=== PATIENT | female | born 1990 | race Caucasian/White ===

== ENCOUNTER 2016-08-31 01:00 | Inpatient (IN) | payer OTHER ==
[~2016-08-31 01:00] MED LIST: BUTORPHANOL TARTRATE 1 MG/ML VIAL IVPUSH ONE; DEXTROSE 5%-LACTATED RINGERS 1,000 ML IV SCH; PROMETHAZINE HCL 25 MG/1 ML VIAL IVPUSH ONE
[2016-08-31] MEDS ORDERED: CLINDAMYCIN 900 MG PREMIX IVPB 50 ML IVPB ONE (01:30)
[2016-08-31 01:55] LABS: BASOPHIL 0.4 % (0-2.0); EOSINOPHIL 0.3 % (0-4.5); MCH 26.5 pg (25.7-33.7); MCHC 32.5 g/dl (32.0-36.0); MEAN CELL VOLUME 81.6 fl (80-96); MEAN PLT VOLUME 9.5 fl (7.5-11.1); PLATELET COUNT 275 K/MM3 (134-434); RDW 14.2 % (11.6-15.6); WHITE BLOOD COUNT 13.4 K/mm3 (4.0-10.0)
[2016-08-31 01:58] VITALS: BMI 44.0
[2016-08-31] MEDS ORDERED: BENZOCAINE 20% 57 GM BOTTLE TP PRN (03:00)
[2016-08-31] MEDS ORDERED: WITCH HAZEL 50% (TUCKS) 40 PAD/JAR PAD TP PRN (03:00)
[2016-08-31] MEDS ORDERED: D5W-LR W/ 20 UNITS OXYTOCIN 1,000 ML IV SCH (03:00)
[2016-08-31] MEDS ORDERED: METHYLERGONOVINE MALEATE 0.2 MG/1 ML AMP IM PRN (03:00)
[2016-08-31] MEDS ORDERED: BENZOCAINE 28 GM HEMORRHOIDAL OINTMENT TP PRN (03:00)
[2016-08-31] MEDS ORDERED: BISACODYL 10 MG SUPP.RECT RC PRN (03:00)
[2016-08-31 04:22] LABS: ACTIVATED PTT 29.3 SECONDS (26.9-34.4); INR 1.04 (0.82-1.09); PROTHROMBIN TIME (PATIENT) 11.4 SEC (9.98-11.88)
[2016-08-31 04:36] LABS: CALCIUM 8.8 mg/dL (8.5-10.1); COCKROFT - GAULT 240.8985; CREATININE 0.6 mg/dL (0.55-1.02)
[2016-08-31] MEDS ORDERED: CLINDAMYCIN 600MG PREMIX IVPB 50 ML IVPB SCH (06:30)
[2016-08-31] MEDS: ACETAMINOPHEN 325 MG TABLET (FP) PO PRN ×3 (07:00→22:20)
[2016-08-31] MEDS: oxyCODONE HCL 5 MG TABLET PO PRN ×3 (07:00→22:20)
[2016-08-31] MEDS ORDERED: LEVOTHYROXINE NA 100 MCG TABLET (FP) PO SCH (07:00)
--- NOTE | 2016-08-31 07:36 | HP ---
Past Medical History - Primary Care Physician PCP:: Servando Santos - Admission Chief Complaint: labor, 39.6 weeks History of Present Illness: 26 yo f 39,6 weeks, in labor, no rom, no bleeding, cx 4 cm 100 vx -2mi , fhr cat 1, contraction regular History Source: Patient Limitations to Obtaining History: No Limitations - Past Medical History Cardiovascular: Yes: Other. No: Mitral Stenosis (h/o preclempsia in past pregn) Pulmonary: Yes: Asthma ...: 4 ...Para: 2 ...Term: 2 ...: 0 ...Spon : 1 ...Induced : 0 ...Multiple Gestation: 0 ...LMP: 11/29/15 ... Weeks Gestation by Dates: 39.4 ...EDC by Dates: 09/04/16 ...EDC by Sono: 09/10/16 Endocrine: Yes: Hypothyroidism, Other (morbid obesity). No: Diabetes Mellitus - Past Surgical History Hx Myomectomy: No Hx Transabdominal Cerclage: No - Smoking History Smoking history: Never smoked Have you smoked in the past 12 months: No - Alcohol/Substance Use Hx Alcohol Use: No History of Substance Use: reports: None - Social History Usual Living Arrangement: Yes: With Spouse History of Recent Travel: No Home Medications - Allergies Allergies/Adverse Reactions: Allergies Allergy/AdvReac Type Severity Reaction Status Date / Time amoxicillin [Amoxicillin] Allergy Severe Hives Verified 07/13/15 10:02 aspirin Allergy Severe Hives Verified 07/13/15 10:02 [From Excedrin Back & Body] calcium carbonate Allergy Severe Hives Verified 07/13/15 10:02 [From Excedrin Back & Body] ibuprofen Allergy Severe Hives Verified 07/13/15 10:02 - Home Medications Home Medications: Ambulatory Orders Levothyroxine [Synthroid -] 100 mcg PO DAILY@0700 tablet 07/14/15 Vitamins (Sjr) - 1 tab PO DAILY #30 tablet 07/14/15 Review of Systems - Review of Systems Constitutional: reports: No Symptoms Eyes: reports: No Symptoms HENT: reports: No Symptoms Neck: reports: No Symptoms Cardiovascular: reports: No Symptoms Respiratory: reports: No Symptoms Gastrointestinal: reports: No Symptoms Genitourinary: reports: No Symptoms Breasts: reports: No Symptoms Reported Musculoskeletal: reports: No Symptoms Integumentary: reports: No Symptoms Neurological: reports: No Symptoms Endocrine: reports: No Symptoms Hematology/Lymphatic: reports: No Symptoms Psychiatric: reports: No Symptoms Physical Exam - Maternity Vital Signs: Vital Signs Temperature 99.2 F 08/31/16 04:51 Pulse Rate 76 08/31/16 04:51 Respiratory Rate 20 08/31/16 04:51 Blood Pressure 134/80 08/31/16 04:51 O2 Sat by Pulse Oximetry (%) Constitutional: Yes: Well Nourished, No Distress, Calm Eyes: Yes: WNL, Conjunctiva Clear, EOM Intact HENT: Yes: WNL, Atraumatic, Normocephalic Neck: Yes: WNL, Supple, Trachea Midline Cardiovascular: Yes: WNL, Regular Rate and Rhythm Breast(s): Yes: WNL - Abdominal Exam/OB Fundal Height: 40 Number of Fetuses: Single Presentation: Vertex Contractions: Yes Regularity: Regular Monitor Mode: External Heart Rate Location: [facility] Category: I Accelerations: Uniform Decelerations: None - Vaginal Exam/OB Vaginal Bleediing: No Speculum Exam: No Dilatation (cm): 4 cm Effacement (%): 100 Amniotic Membrane Status: Bulging Presentation: Vertex/Position Station: -2 - Physical Exam Musculoskeletal: Yes: WNL Extremities: Yes: WNL Edema: Yes Edema: LLE: Trace, RLE: Trace Deep Tendon Reflex Grade: Normal +2 Psychiatric: Yes: WNL - Labs Lab Results: CBC, BMP 08/31/16 01:30 08/31/16 01:30 Hemorrhage Risk Assessment - Risk Factors High Risk Factors: Yes: None Risk Score: 0 Risk Level: Low Risk Problem List - Problems (1) with 39 completed weeks gestation Code(s): Z3A.39 - 39 WEEKS GESTATION OF (2) First stage of labor established Code(s): [id number] - (3) Hypothyroidism affecting Code(s): O99.280 - ENDO, NUTRITIONAL AND METAB DISEASES COMP PREG, UNSP TRI E03.9 - HYPOTHYROIDISM, UNSPECIFIED Qualifiers: Trimester: third trimester Qualified Code(s): O99.283 - Endocrine, nutritional and metabolic diseases complicating , third trimester (4) Obesity affecting in third trimester Code(s): O99.213 - OBESITY COMPLICATING , THIRD TRIMESTER Assessment/Plan plan admit, for vaginal delivery, heart monitoring, pain management
[2016-08-31] MEDS: PRENATAL VITAMINS W/ FOLIC ACID TABLET (FP) PO SCH (10:24)
[2016-09-01] MEDS ORDERED: SENNOSIDES/DOCUSATE COMBO (SENNA PLUS) TABLET (UD) PO PRN (03:00)
[2016-09-01] MEDS: ACETAMINOPHEN 325 MG TABLET (FP) PO PRN ×5 (03:50→23:49)
[2016-09-01] MEDS: LEVOTHYROXINE NA 100 MCG TABLET (FP) PO SCH (06:05)
[2016-09-01] MEDS: oxyCODONE HCL 5 MG TABLET PO PRN ×4 (06:08→23:48)
--- NOTE | 2016-09-01 08:02 | PN ---
Post Progress Note - Subjective Subjective: no complains Post Day: 1 Type of Delivery: Vital Signs: Vital Signs Temperature 98.4 F 09/01/16 02:00 Pulse Rate 84 09/01/16 02:00 Respiratory Rate 18 09/01/16 02:00 Blood Pressure 121/75 09/01/16 02:00 O2 Sat by Pulse Oximetry (%) Breast Exam: Yes: Soft, Other (BF ). No: Engorged Uterus: Yes: Fundus Firm, Fundus below umbilicus, Non-tender Abdomen/GI: Yes: Tolerating PO Lochia: Yes: Rubra Lochia, amount: Moderate Extremities: Yes: Calves non-tender. No: Calf tenderness Perineum: Yes: Intact Activity: Ambulating - Labs Labs: CBC WBC 13.4 K/mm3 (4.0-10.0) H 08/31/16 01:30 RBC 4.75 M/mm3 (3.60-5.2) 08/31/16 01:30 Hgb 12.6 GM/dL (10.7-15.3) D 08/31/16 01:30 Hct 38.8 % (32.4-45.2) D 08/31/16 01:30 MCV 81.6 fl (80-96) 08/31/16 01:30 MCHC 32.5 g/dl (32.0-36.0) 08/31/16 01:30 RDW 14.2 % (11.6-15.6) D 08/31/16 01:30 Plt Count 275 K/MM3 (134-434) D 08/31/16 01:30 MPV 9.5 fl (7.5-11.1) 08/31/16 01:30 Neutrophils % 78.0 % (42.8-82.8) 08/31/16 01:30 Lymphocytes % 16.3 % (8-40) 08/31/16 01:30 Monocytes % 5.0 % (3.8-10.2) 08/31/16 01:30 Eosinophils % 0.3 % (0-4.5) D 08/31/16 01:30 Basophils % 0.4 % (0-2.0) 08/31/16 01:30 Assessment/Plan stable plan ct pp care
[2016-09-01] MEDS ORDERED: PNEUMOCOCCAL 23 VACCINE 0.5 ML VIAL IM ONE (10:00)
[2016-09-01] MEDS ORDERED: PNEUMOC 13-VAL CONJ-DIP CRM/PF 0.5 ML DISP.SYRIN IM ONE (10:00)
[2016-09-01] MEDS ORDERED: DIPHTH,PERTUSS(ACELL),TET 0.5 ML DISP.SYRIN IM ONE (10:00)
[2016-09-01] MEDS: PRENATAL VITAMINS W/ FOLIC ACID TABLET (FP) PO SCH (10:12)
[2016-09-02] MEDS: LEVOTHYROXINE NA 100 MCG TABLET (FP) PO SCH (06:01)
[2016-09-02 08:52] VITALS: BP 127/79; PULSE 89; TEMP 98.5
--- NOTE | 2016-09-02 09:30 | PN ---
Post Progress Note - Subjective Subjective: asymptomatic Post Day: 2 Type of Delivery: Vital Signs: Vital Signs Temperature 98.5 F 09/02/16 08:48 Pulse Rate 89 09/02/16 08:48 Respiratory Rate 20 09/02/16 08:48 Blood Pressure 127/79 09/02/16 08:48 O2 Sat by Pulse Oximetry (%) Breast Exam: Yes: Soft, Other (BF ). No: Engorged Uterus: Yes: Fundus Firm, Fundus below umbilicus, Non-tender Lochia: Yes: Rubra Lochia, amount: Moderate Extremities: Yes: Calves non-tender Perineum: Yes: Intact Activity: Ambulating - Labs Labs: CBC WBC 13.4 K/mm3 (4.0-10.0) H 08/31/16 01:30 RBC 4.75 M/mm3 (3.60-5.2) 08/31/16 01:30 Hgb 12.6 GM/dL (10.7-15.3) D 08/31/16 01:30 Hct 38.8 % (32.4-45.2) D 08/31/16 01:30 MCV 81.6 fl (80-96) 08/31/16 01:30 MCHC 32.5 g/dl (32.0-36.0) 08/31/16 01:30 RDW 14.2 % (11.6-15.6) D 08/31/16 01:30 Plt Count 275 K/MM3 (134-434) D 08/31/16 01:30 MPV 9.5 fl (7.5-11.1) 08/31/16 01:30 Neutrophils % 78.0 % (42.8-82.8) 08/31/16 01:30 Lymphocytes % 16.3 % (8-40) 08/31/16 01:30 Monocytes % 5.0 % (3.8-10.2) 08/31/16 01:30 Eosinophils % 0.3 % (0-4.5) D 08/31/16 01:30 Basophils % 0.4 % (0-2.0) 08/31/16 01:30 Assessment/Plan stable. discharge today.
[2016-09-02] MEDS: PRENATAL VITAMINS W/ FOLIC ACID TABLET (FP) PO SCH (09:40)
[2016-09-02] MEDS: oxyCODONE HCL 5 MG TABLET PO PRN (11:04)
[2016-09-02] MEDS: ACETAMINOPHEN 325 MG TABLET (FP) PO PRN (11:05)
--- NOTE | 2016-09-03 19:57 | DS ---
Physical Exam-MANAGER SEARCH ENGINE Vital Signs: Vital Signs Temperature 98.5 F 09/02/16 08:48 Pulse Rate 89 09/02/16 08:48 Respiratory Rate 20 09/02/16 08:48 Blood Pressure 127/79 09/02/16 08:48 O2 Sat by Pulse Oximetry (%) Constitutional: Yes: Well Nourished, No Distress, Calm Eyes: Yes: WNL, Conjunctiva Clear, EOM Intact HENT: Yes: WNL, Atraumatic, Normocephalic Neck: Yes: WNL, Supple, Trachea Midline Cardiovascular: Yes: WNL, Regular Rate and Rhythm Respiratory: Yes: WNL, Regular, CTA Bilaterally Gastrointestinal: Yes: WNL ...Rectal Exam: Yes: WNL Renal/: Yes: WNL External Genitalia: Yes: Normal Cervix: Yes: Discharge ....Post : Yes: Uterus firm, Uterus non-tender, Slight lochia rubra Breast(s): Yes: WNL Musculoskeletal: Yes: WNL Extremities: Yes: WNL Edema: No Integumentary: Yes: WNL Neurological: Yes: WNL, Alert, Oriented ...Motor Strength: WNL Psychiatric: Yes: WNL, Alert, Oriented Labs: CBC, BMP 08/31/16 01:30 08/31/16 01:30 Delivery - Delivery Vaginal Delivery: Spontaneous (no complication) Type of Anesthesia: None Episiotomy/Laceration: None EBL (cc): 300 Delivery, Single - Stages of Labor Date 1st Stage Initiatied: 08/30/16 Time 1st Stage Initiated: 16:00 Date 2nd Stage Initiated: 08/31/16 Time 2nd Stage Initiated: 02:45 Date of Delivery: 08/31/16 Time of Delivery: 02:46 Time Placenta Delivered: 02:49 Placenta: No: Spontaneous - Condition of Infant Wash Oil Cooler Operator/Telehealth Nurse Educator Present: No Infant Gender: Female Weight: 8 lb 1 oz Position: Left, OA Total Hours ROM (Hrs/Mins): 14mins - 1 Minute Total Score: 9 5 Minutes Total Score: 9 - [place] Feeding Plan Initial Plan: Elected not to breastfeed exclusively throughout hospitalization Discharge Summary Reason For Visit: LABOR ADMIT Procedures: Principal: - Instructions Diet, Activity, Other Instructions: call and schedule appointment for exam 4 to 6 weeks. if severe bleeding,pain call md Referrals: Servando Santos MD [Staff Physician] - Disposition: HOME - Home Medications Comprehensive Discharge Medication List: Ambulatory Orders Levothyroxine [Synthroid -] 100 mcg PO DAILY@0700 tablet 07/14/15 Vitamins (Sjr) - 1 tab PO DAILY #30 tablet 07/14/15 Acetaminophen [Tylenol .Regular Strength -] 325 mg PO Q6H PRN #0 tablet
== END 2016-09-02 11:53 | disposition home or self-care (01) | DRG 560 ==
LOC: JLDR 01:00 → J3W 04:50
PROVIDERS: ADMIT Obstetrics & Gynecology; ATTEND Obstetrics & Gynecology
PROC: 10E0XZZ Delivery of Products of Conception, External Approach (ICD-10-PCS; principal; 2016-08-31)
DX: O99.284 Endocrine, nutritional and metabolic diseases complicating childbirth (principal); E03.9 Hypothyroidism, unspecified; O99.214 Obesity complicating childbirth; E66.8 Other obesity; Z68.41 Body mass index [BMI] 40.0-44.9, adult; Z3A.39 39 weeks gestation of pregnancy; Z37.0 Single live birth
CPT/HCPCS: 36415; 59409; 80048; 85025; 85610; 85730; 86593; 86850; 86900; 86901; 90715; 90732; G0009

== ENCOUNTER 2016-09-03 12:49 | Inpatient (IN) | payer OTHER ==
[2016-09-03] MEDS ORDERED: ACETAMINOPHEN 325 MG TABLET (FP) PO ONE (14:04)
[2016-09-03] MEDS ORDERED: ACETAMINOPHEN 325 MG TABLET (FP) ONE (14:12)
--- NOTE | 2016-09-03 14:18 | PDOC ---
History of Present Illness - History of Present Illness Initial Comments: 09/03/16 14:38 Patient is a 26-year-old female , who presents to the emergency department today complaining of abdominal pain status post vaginal delivery 3 days ago. Patient states that she was discharged from the hospital yesterday and she felt no pain. She will morning with excruciating lower abdominal pain. Nothing makes the pain better. Patient states that she has not been bleeding after her . She called her WORK CAR OPERATOR who wanted her to be evaluated for retained blood in the uterus. Tylenol gives mild relief. Patient is currently breast- feeding. She states that she did not have this pain with her other 2 children. Denies vaginal discharge, frequency, dysuria, hematuria. Denies fever, chills, weakness, chest pain, shortness of breath, dizziness, nausea, vomiting and diarrhea. <Joelle Colin - Last Filed: 09/03/16 18:36> <Jovanny Hampton - Last Filed: 09/03/16 22:23> <Erica Chow - Last Filed: 09/04/16 09:38> - General Chief Complaint: Pain Stated Complaint: POST NINA/ ABD PAIN Time Seen by Provider: 09/03/16 13:39 Past History - Past Medical History Asthma: Yes (LAST ATTACK UNKNOWN) Cancer: No Cardiac Disorders: No Diabetes: No HTN: Yes (PRE-ECLAMPSIA W/ 1ST ) Seizures: No Thyroid Disease: No - Reproductive History (#): 2 Para: 1 - Psycho/Social/Smoking Cessation Hx Anxiety: No Suicidal Ideation: No Smoking History: Never smoked Have you smoked in the past 12 months: No Information on smoking cessation initiated: No Hx Alcohol Use: No Drug/Substance Use Hx: No Substance Use Type: None Hx Substance Use Treatment: No <Joelle Colin - Last Filed: 09/03/16 18:36> <Jovanny Hampton - Last Filed: 09/03/16 22:23> <Erica Chow - Last Filed: 09/04/16 09:38> - Past Medical History Allergies/Adverse Reactions: Allergies Allergy/AdvReac Type Severity Reaction Status Date / Time amoxicillin [Amoxicillin] Allergy Severe Hives Verified 09/03/16 12:52 aspirin Allergy Severe Hives Verified 09/03/16 12:52 [From Excedrin Back & Body] calcium carbonate Allergy Severe Hives Verified 09/03/16 12:52 [From Excedrin Back & Body] ibuprofen Allergy Severe Hives Verified 09/03/16 12:52 Home Medications: Ambulatory Orders Levothyroxine [Synthroid -] 100 mcg PO DAILY@0700 tablet 07/14/15 Vitamins (Sjr) - 1 tab PO DAILY #30 tablet 07/14/15 Acetaminophen [Tylenol .Regular Strength -] 325 mg PO Q6H PRN #0 tablet *Physical Exam - Vital Signs Last Vital Signs Temp Pulse Resp BP Pulse Ox 98.0 F 88 18 148/78 100 09/03/16 12:53 09/03/16 12:53 09/03/16 12:53 09/03/16 12:53 09/03/16 12:53 - Physical Exam General Appearance: Yes: Nourished, Appropriately Dressed, Mild Distress Respiratory/Chest: positive: Lungs Clear, Normal Breath Sounds. negative: Respiratory Distress, Accessory Muscle Use Cardiovascular: positive: Regular Rhythm, Regular Rate, S1, S2 (present). negative: Murmur (no rubs or gallops) Female Pelvic Exam: positive: normal external exam, CMT, vaginal bleeding ( Scant vaginal bleeding). negative: cervical os closed (open with scant blood. Delivered three days ago 08/31/16.), adnexal tenderness Gastrointestinal/Abdominal: positive: Normal Bowel Sounds, Tender (RLQ pain and suprapubic tenderness. (+) rebound tenderness in RLQ), Flat, Soft. negative: Distended Integumentary: positive: Normal Color, Dry, Warm Neurologic: positive: marshmallow maker II-XII NML intact, Fully Oriented, Alert, Normal Mood/ Affect, Normal Response, Motor Strength 5/5 <Joelle Colin - Last Filed: 09/03/16 18:36> - Vital Signs Last Vital Signs Temp Pulse Resp BP Pulse Ox 98.9 F 89 19 156/71 100 09/03/16 20:35 09/03/16 20:35 09/03/16 20:35 09/03/16 20:35 09/03/16 20:35 <Jovanny Hampton - Last Filed: 09/03/16 22:23> - Vital Signs Last Vital Signs Temp Pulse Resp BP Pulse Ox 98.0 F 81 16 130/85 95 09/04/16 08:04 09/04/16 08:04 09/04/16 08:04 09/04/16 08:04 09/04/16 08:04 <Erica Chow - Last Filed: 09/04/16 09:38> ED Treatment Course - LABORATORY CBC & Chemistry Diagram: 09/03/16 14:06 09/03/16 14:06 <Joelle Colin - Last Filed: 09/03/16 18:36> - LABORATORY CBC & Chemistry Diagram: 09/03/16 14:06 09/03/16 14:06 - ADDITIONAL ORDERS Additional order review: Laboratory Results 09/03/16 09/03/16 09/03/16 15:35 14:20 14:06 Sodium 139 Potassium 4.0 Chloride 104 Carbon Dioxide 24 Anion Gap 11 BUN 8 D Creatinine 0.6 Creat Clearance w eGFR > 60 Random Glucose 128 H D Calcium 9.0 Total Bilirubin 0.6 D AST 17 D ALT 21 Alkaline Phosphatase 113 D Total Protein 7.1 Albumin 2.7 L Lipase 115 Urine Color Yellow Urine Appearance Clear Urine pH 7.0 Ur Specific [place] 1.020 Urine Protein Negative Urine Glucose (UA) Negative Urine Ketones Negative Urine Blood Negative Urine Nitrite Negative Urine Bilirubin Negative Urine Urobilinogen 2.0 e.u/dl H Ur Leukocyte Esterase Negative 09/03/16 14:06 RBC 4.25 MCV 82.2 MCHC 32.8 RDW 14.7 MPV 8.7 Neutrophils % 85.9 H Lymphocytes % 9.2 D Monocytes % 3.2 L Eosinophils % 1.1 D Basophils % 0.6 - Medications Given in the ED: ED Medications Discontinued Medications Generic Name Dose Route Start Last Admin Trade Name Tomaszq PRN Reason Stop Dose Admin Acetaminophen 650 mg 09/03/16 14:04 09/03/16 14:29 Tylenol - PO 09/03/16 14:05 650 mg ONCE ONE Administration Morphine Sulfate 4 mg 09/03/16 20:26 09/03/16 20:31 Morphine Injection - IVPUSH 09/03/16 20:27 4 mg ONCE ONE Administration Oxycodone/Acetaminophen 2 combo 09/03/16 20:21 09/03/16 20:31 Percocet 5/325 - PO 09/03/16 20:22 Not Given ONCE ONE <Jovanny Hampton - Last Filed: 09/03/16 22:23> - LABORATORY CBC & Chemistry Diagram: 09/03/16 14:06 09/03/16 14:06 - ADDITIONAL ORDERS Additional order review: 09/03/16 14:06 RBC 4.25 MCV 82.2 MCHC 32.8 RDW 14.7 MPV 8.7 Neutrophils % 85.9 H Lymphocytes % 9.2 D Monocytes % 3.2 L Eosinophils % 1.1 D Basophils % 0.6 - Medications Given in the ED: ED Medications Discontinued Medications Generic Name Dose Route Start Last Admin Trade Name Karthikeyan PRN Reason Stop Dose Admin Acetaminophen 650 mg 09/03/16 14:04 09/03/16 14:29 Tylenol - PO 09/03/16 14:05 650 mg ONCE ONE Administration Hydromorphone HCl 1 mg 09/03/16 22:28 09/03/16 22:40 Dilaudid Injection - IVPUSH 09/03/16 22:29 1 mg ONCE ONE Administration Ciprofloxacin/Dextrose 200 mls @ 200 mls/hr 09/03/16 20:42 09/04/16 01:44 Cipro 400 Mg Premix Ivpb (Restricted To Id) IVPB 09/03/16 21:41 200 mls/hr ONCE ONE Administration Metronidazole 100 mls @ 100 mls/hr 09/03/16 20:42 09/03/16 20:55 Flagyl 500mg Premixed Ivpb - IVPB 09/03/16 21:41 100 mls/hr ONCE ONE Administration Morphine Sulfate 4 mg 09/03/16 20:26 09/03/16 20:31 Morphine Injection - IVPUSH 09/03/16 20:27 4 mg ONCE ONE Administration Oxycodone/Acetaminophen 2 combo 09/03/16 20:21 09/03/16 20:31 Percocet 5/325 - PO 09/03/16 20:22 Not Given ONCE ONE <Erica Chow - Last Filed: 09/04/16 09:38> Medical Decision Making - Medical Decision Making 09/03/16 15:14 Pt. is a Patient is a 26-year-old female , status post vaginal delivery 3 days ago presents with suprapubic tenderness and right lower quadrant pain. Unsure at this time if this is normal post pain, or due to retained fluid blood in the uterus, or possible abdominal origin. Obtain basic labs, UA, UC, and pelvic ultrasound at this time. 09/03/16 16:42 Patient's blood work is notable for a white blood cell count of 13.1, and a urine urobilinogen of 2.0. The rest of her lab work is unremarkable, and her urine shows no evidence of a UTI. Transvaginal ultrasound shows a uterus with residual fluid and blood within the endometrial cavity. There is no sonographic evidence of retained products of conception. Within the above lab work and ultrasound findings, we will consult with her OB/ PROPELLER TESTER at this time. May need CAT scan to rule out appendicitis, however unsure if this could be related to retained fluid and blood in the cavity. 09/03/16 16:[address] Bajwa. 09/03/16 17:[address] Bajwa is not her doctor. Dr. Samano delivered her three days ago. Will call Dr. Samano now 09/03/16 17:[address] Samano. given WBC and pain, wants to r/o appendicitis. Less likely d/t the retained fluid and blood in the uterus. Will order Abdomen/ pelvis CT with contrast to r/o appendicitis. 09/03/16 18:29 Waiting to send PT. to CT to r/o appendicitis. Dispo after scan results. <Joelle Colin - Last Filed: 09/03/16 18:36> *DC/Admit/Observation/Transfer <Joelle Colin - Last Filed: 09/03/16 18:36> - Discharge Dispostion Admit: Yes <Jovanny Hampton - Last Filed: 09/03/16 22:23> - Attestations Physician Attestion: I reviewed the case with the mid-level practitioner and agree with the mid- level practitioner's assessment, diagnosis and disposition. <Erica Chow - Last Filed: 09/04/16 09:38> Diagnosis at time of Disposition: Appendicitis Qualifiers: Appendicitis type: acute appendicitis Acute appendicitis type: with localized peritonitis Qualified Code(s): K35.3 - Acute appendicitis with localized peritonitis - Discharge Dispostion Condition at time of disposition: Fair
[2016-09-03 14:37] LABS: BASOPHIL 0.6 % (0-2.0); EOSINOPHIL 1.1 % (0-4.5); MCH 26.9 pg (25.7-33.7); MCHC 32.8 g/dl (32.0-36.0); MEAN CELL VOLUME 82.2 fl (80-96); MEAN PLT VOLUME 8.7 fl (7.5-11.1); NEUTROPHILS 85.9 % (42.8-82.8); PLATELET COUNT 251 K/MM3 (134-434); RDW 14.7 % (11.6-15.6); WHITE BLOOD COUNT 13.2 K/mm3 (4.0-10.0)
[2016-09-03 15:00] LABS: ALBUMIN 2.7 g/dl (3.4-5.0); ANION GAP 11 (8-16); BILIRUBIN,TOTAL 0.6 mg/dL (0.2-1.0); CO2 24 mmol/L (21-32); CREATININE 0.6 mg/dL (0.55-1.02); GLUCOSE,RANDOM 128 mg/dL (74-106); SGOT/AST 17 U/L (15-37); SGPT/ALT 21 U/L (12-78); TOT PROT 7.1 g/dl (6.4-8.2)
[2016-09-03 15:01] LABS: ALK PHOS 113 U/L (45-117)
[2016-09-03 15:49] LABS: URINE APPEARANCE CLEAR; URINE BILIRUBIN NEGATIVE (NEGATIVE); URINE BLOOD NEGATIVE (NEGATIVE); URINE COLOR YELLOW; URINE GLUCOSE (UA) NEGATIVE (NEGATIVE); URINE KETONE NEGATIVE (NEGATIVE); URINE LEUK ESTERASE NEGATIVE (NEGATIVE); URINE NITRITE NEGATIVE (NEGATIVE); URINE PROTEIN NEGATIVE (NEGATIVE); URINE UROBILINOGEN 2.0 E.U/dl E.U./dl (0.2-1.0)
[2016-09-03] MEDS ORDERED: OXYCODONE/APAP 5/325MG COMBO TABLET PO ONE (20:21)
[2016-09-03] MEDS ORDERED: OXYCODONE/APAP 5/325MG COMBO TABLET ONE (20:22)
[2016-09-03] MEDS ORDERED: morphine CARPU-JECT 4 MG/1 ML DISP.SYRIN ONE (20:23)
[2016-09-03] MEDS ORDERED: morphine CARPU-JECT 4 MG/1 ML DISP.SYRIN IVPUSH ONE (20:26)
[2016-09-03] MEDS ORDERED: CIPROFLOXACIN 400 MG/D5W 200 ML IVPB ONE (20:42)
[2016-09-03] MEDS ORDERED: METRONIDAZOLE 500 MG PREMIXED 100 ML IVPB ONE ×2 (20:42→20:47)
[2016-09-03] MEDS ORDERED: SODIUM CHLORIDE 1,000 ML IV SCH (20:45)
[2016-09-03] MEDS ORDERED: ALBUTEROL SO4 0.083% IH SOL 2.5 MG/3 ML VIAL.NEB. NEB PRN (22:14)
[2016-09-03] MEDS ORDERED: ONDANSETRON 4 MG/2 ML VIAL IVPB PRN (22:14)
[2016-09-03] MEDS ORDERED: HYDROmorphone HCL CARPU-JECT 1 MG/1 ML DISP.SYRIN IVPB PRN (22:14)
[2016-09-03] MEDS ORDERED: HYDROmorphone HCL CARPU-JECT 1 MG/1 ML DISP.SYRIN IVPUSH ONE (22:28)
[2016-09-03] MEDS ORDERED: HYDROmorphone HCL CARPU-JECT 1 MG/1 ML DISP.SYRIN ONE (22:43)
--- NOTE | 2016-09-03 23:07 | HP ---
Admitting History and Physical - Primary Care Physician PCP: Sally Luo - Admission Chief Complaint: Right sided abdominal pain History of Present Illness: 26yoF , 3 days at 38w+5d by , discharged yesterday from [facility] without problems. Woke up this morning with right-sided back pain, which progressed to include RLQ and right-sided abdominal pain, ultimately with point of most pain at right side of mid-abdomen. Pt had little appetite today, and has had almost no po today until coming to ER, which she decided to do when pain got so bad she could not get out of bed. No N/V, no f/c, no diarrhea, tends to constipation. She called her OB, who wanted her to come in and get checked for a possible uterine problem/source of pain. In the ER, she was afebrile with wbc 13.2; transvaginal US showed small amount of blood in uterus but no retained POC. CT showed appendicitis with dilated/inflamed appendix in right mid-abdomen, uterus 19cm long to just above umbilicus and toward right side. ER gave fluids and started Cipro/Flagyl (pt allergy to amox). Pt had drunk water to prepare for TV US and ate few bites of guy cracker about 6pm after CT scan. Pt reports that she does not plan to breastfeed after this admission and has had little milk production thus far. History Source: Patient Limitations to Obtaining History: No Limitations - Past Medical History Cardiovascular: No: HTN Pulmonary: Yes: Asthma (has not needed inhaler for at least a year) Gastrointestinal: Yes: Constipation Reproductive: Yes: Other (pre-eclampsia w/first ) ...LMP: 03/09/14 ...: No (3 days ) ...: 4 (had one miscarriage) ...Para: 3 Endocrine: Yes: Hypothyroidism, Other (morbid obesity). No: Diabetes Mellitus - Past Surgical History Past Surgical History: Yes: Arthrosocopy (R knee 2014) Additional Past Surgical History: vaginal deliveries x 3 - Smoking History Smoking history: Never smoked Have you smoked in the past 12 months: No - Alcohol/Substance Use Hx Alcohol Use: No History of Substance Use: reports: None - Social History History of Recent Travel: No Home Medications - Allergies Allergies/Adverse Reactions: Allergies Allergy/AdvReac Type Severity Reaction Status Date / Time amoxicillin [Amoxicillin] Allergy Severe Hives Verified 09/03/16 12:52 aspirin Allergy Severe Hives Verified 09/03/16 12:52 [From Excedrin Back & Body] calcium carbonate Allergy Severe Hives Verified 09/03/16 12:52 [From Excedrin Back & Body] ibuprofen Allergy Severe Hives Verified 09/03/16 12:52 - Home Medications Home Medications: Ambulatory Orders Levothyroxine [Synthroid -] 100 mcg PO DAILY@0700 tablet 07/14/15 Vitamins (Sjr) - 1 tab PO DAILY #30 tablet 07/14/15 Acetaminophen [Tylenol .Regular Strength -] 325 mg PO Q6H PRN #0 tablet Family Disease History - Family Disease History Family Disease History: Diabetes: Father, Other: Mother (htn) Review of Systems - Review of Systems Constitutional: reports: Loss of Appetite (today). denies: Chills, Fever Eyes: denies: Blurred Vision, Double Vision HENT: denies: Difficult Swallowing, Hearing Loss, Throat Pain Neck: denies: Stiffness, Swollen Glands Cardiovascular: denies: Chest Pain, Palpitations Respiratory: denies: Cough, SOB, Wheezing Gastrointestinal: reports: Abdominal Pain, Constipation. denies: Nausea, Vomiting Genitourinary: denies: Burning, Dysuria, Vaginal Bleeding Breasts: reports: Other (lactating) Musculoskeletal: reports: Back Pain (with ), Joint Pain (knees) Integumentary: denies: Bruising, Rash Neurological: denies: Dizziness, Headache Hematology/Lymphatic: denies: Easily Bruised, Excessive Bleeding, Swollen Glands Physical Examination Vital Signs: Vital Signs Temperature 98.9 F 09/03/16 20:35 Pulse Rate 89 09/03/16 20:35 Respiratory Rate 19 09/03/16 20:35 Blood Pressure 156/71 09/03/16 20:35 O2 Sat by Pulse Oximetry (%) 100 09/03/16 20:35 Constitutional: Yes: Well Nourished, Calm, Mild Distress (secondary to pain), Obese Eyes: Yes: Conjunctiva Clear, EOM Intact HENT: Yes: Atraumatic, Normocephalic Cardiovascular: Yes: Regular Rate and Rhythm, Tachycardia (slight). No: Murmur Respiratory: Yes: Regular, CTA Bilaterally. No: Wheezes Gastrointestinal: Yes: Soft, Abdomen, Obese, Hypoactive Bowel Sounds, Tenderness (R mid-abdomen including along right side (with focal point in anterior axillary line) but not back/CVA, extending up to RUQ and less lower; also referred tenderness from left side; mild tenderness over enlarged uterus across lower quadrants) ...Rectal Exam: Yes: Deferred Renal/: No: CVA Tenderness - Left, CVA Tenderness - Right Breast(s): Yes: Other ( pads in place) Extremities: No: Calf Tenderness, Deformity Edema: Yes Edema: LLE: 1+ (ankles/feet), RLE: 1+ (ankles/feet) Peripheral Pulses WNL: Yes Integumentary: No: Rash, Venous Stasis Changes Neurological: Yes: Alert, Oriented Labs: wbc 13.2, lytes normal, UA neg Imaging - Results Cat Scan: Report Reviewed, Image Reviewed (dilated and inflamed appendix in right mid-abdomen, part at liver tip, about mid-kidney level; uterus to just above umbilicus and more to right side than left) Ultrasound: Report Reviewed Problem List - Problems (1) Acute appendicitis with localized peritonitis Assessment/Plan: Will admit for surgery in am, maintain NPO/IVF, antibiotics, DVT prophylaxis, pain meds prn. Discussed with patient and partner laparoscopic possible open appendectomy with R/B/A including but not limited to: infection, bleeding, injury to adjacent structures, injury to uterus, intestinal leak/perforation, postop infection/ abscess. Patient would like to go ahead with surgery; will plan for am since not NPO at least 8 hrs now. Code(s): K35.3 - ACUTE APPENDICITIS WITH LOCALIZED PERITONITIS (2) Disease of digestive system complicating puerperium Assessment/Plan: will consult OB Dr. Samano Code(s): O99.63 - DISEASES OF THE DIGESTIVE SYSTEM COMPLICATING THE PUERPERIUM (3) Hypothyroid Assessment/Plan: continue synthroid Code(s): E03.9 - HYPOTHYROIDISM, UNSPECIFIED Qualifiers: Hypothyroidism type: unspecified Qualified Code(s): E03.9 - Hypothyroidism, unspecified (4) Asthma Assessment/Plan: will order albuterol nebs prn Code(s): J45.909 - UNSPECIFIED ASTHMA, UNCOMPLICATED Qualifiers: Asthma severity: mild intermittent Asthma complication type: uncomplicated Qualified Code(s): J45.20 - Mild intermittent asthma, uncomplicated Assessment/Plan Pt with acute appendicitis 3 days . Agreeable to OR but only NPO since 6pm; will do in am. Will consult Dr. Samano (pt's OB) for med/ needs while in-house. Anticipate patient may need to stay through two midnights , depending on surgery and postop course.
[2016-09-04] MEDS ORDERED: ceFAZolin SODIUM 1 GM VIAL IVPB ONE
[2016-09-04] MEDS ORDERED: BUPIVACAINE HCL/PF 0.5% (5MG/ML) 10 ML VIAL IJ ONE
[2016-09-04] MEDS ORDERED: HYDROmorphone HCL CARPU-JECT 1 MG/1 ML DISP.SYRIN ONE (03:06)
[2016-09-04] MEDS ORDERED: METRONIDAZOLE 500 MG PREMIXED 100 ML IVPB SCH (05:00)
[2016-09-04] MEDS: LACTATED RINGERS SOLUTION 1,000 ML IV SCH ×2 (05:31→22:50)
[2016-09-04] MEDS ORDERED: METRONIDAZOLE 500 MG PREMIXED 100 ML IVPB ONE ×2 (05:35→08:56)
[2016-09-04] MEDS ORDERED: SUCCINYLCHOLINE CHLORIDE 200 MG/10 ML VIAL ONE (07:58)
[2016-09-04] MEDS ORDERED: MIDAZOLAM HCL 2 MG/2 ML SINGLE DOSE VIAL ONE (07:59)
[2016-09-04] MEDS ORDERED: ROCURONIUM BROMIDE 50 MG/5 ML VIAL ONE (07:59)
[2016-09-04] MEDS ORDERED: CIPROFLOXACIN 400 MG/D5W 200 ML IVPB ONE (08:00)
[2016-09-04] MEDS ORDERED: LIDOCAINE HCL/PF 2% SDV 5ML VIAL ONE (08:44)
[2016-09-04] MEDS ORDERED: PROPOFOL 20 ML ONE ×2 (08:48)
[2016-09-04] MEDS ORDERED: CIPROFLOXACIN IVPB ONE (08:55)
[2016-09-04] MEDS ORDERED: METRONIDAZOLE 500 MG PREMIXED 500 MG/100 ML MG IVPB ONE (08:59)
[2016-09-04] MEDS ORDERED: DEXAMETHASONE SOD PHOSPHATE 4 MG/1 ML VIAL ONE (09:07)
[2016-09-04] MEDS ORDERED: NEOSTIGMINE METHYLSULFATE 0.5 MG/ML - 10 ML MDV ONE (10:00)
--- NOTE | 2016-09-04 10:33 | OP ---
Operative Note - Note: Operative Date: 09/04/16 Pre-Operative Diagnosis: acute appendicitis with localized peritonitis Operation: laparoscopic appendectomy Findings: enlarged, inflamed appendix, enlarged uterus Post-Operative Diagnosis: Same as Pre-op Surgeon: Jose Medina Figure Clerk: Jonathan Malik Anesthesiologist/COOK FISH EGGS: Bettina Carlin Anesthesia: General Specimens Removed: appendix Estimated Blood Loss (mls): 5 Fluid Volume Replaced (mls): 1,200 (UOP 75ml) Operative Report Dictated: Yes
[2016-09-04] MEDS ORDERED: HYDROmorphone HCL CARPU-JECT 2 MG/1 ML DISP.SYRIN ONE (11:02)
[2016-09-04] MEDS: HYDROmorphone HCL CARPU-JECT 1 MG/1 ML DISP.SYRIN IVPB PRN ×2 (11:05→16:38)
[2016-09-04] MEDS: LEVOTHYROXINE NA 100 MCG TABLET (FP) PO SCH (13:00)
[2016-09-04] MEDS ORDERED: cefOXitin SODIUM 2 GM VIAL (RESTRICTED TO ID) IVPB ONE (15:30)
[2016-09-04 15:50] VITALS: BMI 42.0
[2016-09-04] MEDS ORDERED: CEFOXITIN SODIUM 2 GM in DEXTROSE 5%-WATER - 100 ML IVPB ONE (17:15)
--- NOTE | 2016-09-04 20:19 | PN ---
Progress Note, Physician Chief Complaint: s/p laparoscopic appendectomy History of Present Illness: Pt seen and examined resting in bed ~1650. C/O pain but just received pain medication; mainly still in R upper abdomen, less in incisions. Has been OOB to bathroom and voided. Had sips, waiting for clears. Had neb treatment and is using NC O2. - Current Medication List Current Medications: Active Medications Acetaminophen/Codeine Phosphate (Tylenol # 3 -) 1 - 2 tab PO Q6H PRN PRN Reason: PAIN Albuterol Sulfate (Ventolin 0.083% Nebulizer Soln -) 1 amp NEB Q6H PRN PRN Reason: SHORT OF BREATH/WHEEZING Last Admin: 09/04/16 15:08 Dose: 1 amp Fentanyl (Sublimaze Injection -) 50 mcg IVPUSH [id number] PRN PRN Reason: PAIN Stop: 09/07/16 12:17 Hydromorphone HCl (Dilaudid Injection -) 1 mg IVPB Q4H PRN PRN Reason: SEVERE PAIN Last Admin: 09/04/16 16:38 Dose: 1 mg Lactated Ringer's (Lactated Ringers Solution) 1,000 mls @ 100 mls/hr IV ASDIR BEATRIS Last Admin: 09/04/16 05:31 Dose: 100 mls/hr Levothyroxine Sodium (Synthroid -) 100 mcg PO DAILY@0700 [facility] Last Admin: 09/04/16 13:00 Dose: Not Given Ondansetron HCl (Zofran Injection) 4 mg IVPB Q6H PRN PRN Reason: NAUSEA - Objective Vital Signs: Vital Signs Temperature 98.0 F 09/04/16 13:00 Pulse Rate 68 09/04/16 13:00 Respiratory Rate 20 09/04/16 13:00 Blood Pressure 118/80 09/04/16 13:00 O2 Sat by Pulse Oximetry (%) 89 L 09/04/16 13:00 Constitutional: Yes: No Distress, Calm, Obese Respiratory: Yes: Regular, CTA Bilaterally, On Nasal O2. No: Rhonchi, SOB, Wheezes Gastrointestinal: Yes: Soft, Abdomen, Obese, Tenderness (RUQ/R midabdomen, less at incisions, no R/G) Wound/Incision: Yes: Clean/Dry, Dressing Dry and Intact Neurological: Yes: Alert, Oriented Problem List - Problems (1) Acute appendicitis with localized peritonitis Assessment/Plan: s/p lap appy; doing ok, encouraged OOB/ambulation, incentive spirometry, advance po intake as tolerated and try po pain meds. Cefoxitin one dose postop anticipate d/c home tomorrow discussed postop restrictions (lifting/exertion), dressing removal in 2 days, pain med use and stool softener, plan for f/u next week - pt to call for appt Code(s): K35.3 - ACUTE APPENDICITIS WITH LOCALIZED PERITONITIS (2) Disease of digestive system complicating puerperium Assessment/Plan: Dr. Santos to see pt Code(s): O99.63 - DISEASES OF THE DIGESTIVE SYSTEM COMPLICATING THE PUERPERIUM (3) Hypothyroid Assessment/Plan: continue synthroid Code(s): E03.9 - HYPOTHYROIDISM, UNSPECIFIED Qualifiers: Hypothyroidism type: unspecified Qualified Code(s): E03.9 - Hypothyroidism, unspecified (4) Asthma Assessment/Plan: continue albuterol nebs prn, encourage IS and OOB, wean O2 Code(s): J45.909 - UNSPECIFIED ASTHMA, UNCOMPLICATED Qualifiers: Asthma severity: mild intermittent Asthma complication type: uncomplicated Qualified Code(s): J45.20 - Mild intermittent asthma, uncomplicated
[2016-09-05] MEDS: ACETAMINOPHEN WITH CODEINE 300MG/30MG TABLET PO PRN ×3 (00:19→15:08)
[2016-09-05] MEDS: LACTATED RINGERS SOLUTION 1,000 ML IV SCH (06:19)
[2016-09-05] MEDS: LEVOTHYROXINE NA 100 MCG TABLET (FP) PO SCH (06:22)
--- NOTE | 2016-09-05 13:42 | OP ---
DATE OF OPERATION: 09/04/2016 PREOPERATIVE DIAGNOSIS: Acute appendicitis with localized peritonitis. POSTOPERATIVE DIAGNOSIS: Acute appendicitis with localized peritonitis. PROCEDURE PERFORMED: Laparoscopic appendectomy. SURGEON: Jose Medina MD SCOOP FILLER: Jonathan Malik MD (Dr. Malik assisted given the patient's state/ more complicated presentation, as the operation was somewhat more difficult than usual.) ANESTHESIA: General endotracheal. ESTIMATED BLOOD LOSS: 5 mL. FLUIDS: Crystalloid, 1200 mL. URINE OUTPUT: 75 mL. SPECIMEN: Appendix to Pathology. FINDINGS: An enlarged inflamed appendix and a enlarged uterus. DISPOSITION: Stable and extubated to PACU. INDICATIONS FOR PROCEDURE: Patient is a 26-year-old female 4 days from vaginal delivery, who had been discharged from the hospital without complications and re-presented the next day to the emergency room with right-sided back, side and mid abdominal pain. Workup showed a white count of 13.2. Transvaginal ultrasound did not show any retained products of conception, just a small amount of blood in the uterus. A CT scan was then performed revealing acute appendicitis with the appendix located up in the right mid-abdomen above an enlarged uterus with the tip nearly at the edge of the liver. The patient had not been n.p.o. for more than a couple of hours at first exam. She was hydrated and given antibiotics overnight and is now taken to the operating room for laparoscopic possible open appendectomy. OPERATIVE TECHNIQUE: The patient was brought to the operating room and laid supine on the operating table. Sequential compression devices were applied to bilateral lower extremities, and next doses of Ciprofloxacin and Flagyl were given in the operating room immediately prior to surgery. After induction and intubation by Anesthesia, a Couch catheter was placed in the patient's bladder under sterile conditions, which was removed at the end of the case. The patient's abdomen was prepped using ChloraPrep and draped in sterile fashion. A small midline incision was made a short distance above the umbilicus and carried into subcutaneous tissues with electrocautery, until the abdominal wall fascia was identified, scored, and elevated with Kathleen clamps. The peritoneum was entered bluntly with the tip of a clamp. A fingertip was used to ensure entry into the peritoneal cavity, and that there were no underlying adhesions. A figure-of-8 stay suture of 0 Polysorb was placed in the fascia for later closure. The fascia was deep; Dr. Malik assisted with exposure and fat retraction. The 12-mm Warner trocar was introduced directly into the abdominal cavity and secured in place with the balloon, and the abdomen was insufflated with carbon dioxide. The patient was positioned with the right side up as the camera was inserted to inspect the abdominal cavity. The enlarged uterus was immediately visible, and the site for the lower trocar was selected to ensure that there would still be room above the uterus to maneuver without injuring it. Thus, an additional 5-mm port was placed in the midline approximately longterm between the umbilicus and the suprapubic area under direct vision. A second 5-mm port was also placed under direct vision in the left abdomen triangulated between the two, and the camera was moved to the left-sided port. Two graspers were introduced through the upper and lower ports. Graspers were used to gently manipulate the cecum until the appendix was identified, with its enlarged and inflamed body and tip in the right mid upper abdomen. Incidentally, the patient's right ovary and tube were visible just to the side of the enlarged uterus and appeared normal. Dr. Malik assisted by holding and manipulating the camera, and the appendix was grasped with the left-hand grasper. A window was created at the base of the appendix where it joined the cecum using the Maryland grasper. Once this had been accomplished, the Maryland was exchanged for an Endo HARSHAL stapler with a blue load, and the base of the appendix was transected with the stapler. There was no bleeding at the staple line. The appendix was again grasped and elevated, and a white load of the Endo HARSHAL stapler was used to transect the mesoappendix. Dr. Malik also assisted with manipulation of the EndoCatch bag, which was then introduced into the abdomen through the upper port and used to place the appendix inside. It was deployed by Dr. Malik, and the appendix was brought out of the port site in the bag. The trocar was then reinserted and pneumoperitoneum reestablished. The operative area was inspected, and the suction head machinist was used to gently irrigate and suction a small bit of bloody fluid. Because of the significantly enlarged uterus, I was unable to inspect the pelvis below it. A small portion of the omentum was gently positioned back over the operative site once it was clear, and the patient was returned to neutral position. The two 5-mm ports were removed under direct vision, at which point the Warner trocar was also removed from the abdominal cavity, which was exsufflated of carbon dioxide. The stay suture at the Warner trocar site was tied to close the fascia there, and all port sites were irrigated with saline solution. The skin was closed with 4-0 Polysorb subcuticular sutures, two interrupted in each of the 5-mm ports, and a running subcuticular in the upper port. Benzoin and Steri-Strips were then applied to the incisions, which were covered with gauze and Tegaderm. The patient's Couch catheter was removed. She was extubated and awakened by Anesthesia. She was then moved back to a stretcher and taken to the recovery room in stable condition, having tolerated the procedure well. Jose Medina M.D. [id number] MTDD
--- NOTE | 2016-09-05 15:04 | PN ---
Progress Note (short form) - Note Progress Note: Post op day#1.S/P Laproscopic appenendectomy under Ga uneventful.Patient stable.No any anesthesia related problem.Patient DC from the anesthesia care.
[2016-09-05 15:50] VITALS: BP 132/72; PULSE 72; TEMP 98.2
--- NOTE | 2016-09-05 15:51 | PATH ---
Surgical Pathology Report Patient Name: BLANCO CHRISTY [facility]. Rec. #: [id number] /Age/Gender: 1990 (Age: 26) / F Account: [id number] Location: [facility] OBS/ELECTRICAL ENGINEERING TECHNOLOGIST Taken: 09/04/2016 Received: 09/04/2016 Reported: 09/05/2016 Physicians: Jose Medina M.D. Specimen(s) Received APPENDIX Clinical History Acute appendicitis Final Diagnosis APPENDIX, APPENDECTOMY: ACUTE APPENDICITIS AND PERIAPPENDICITIS. Electronically Signed Moise Murillo M.D. Gross Description Received in formalin, labeled "appendix" is a 7 cm in length vermiform appendix with a stapled margin of resection and moderate attached fat. The serosa is horner-somers with attached exudate. Sectioning reveals a hemorrhagic lumen. The wall of the appendix averages 0.2 cm in thickness. Tension Machine Operator sections are submitted in one cassette. /09/04/201609/04/2016
--- NOTE | 2016-09-05 16:41 | DS ---
"Physical Examination Vital Signs: Vital Signs Temperature 98.2 F 09/05/16 15:00 Pulse Rate 72 09/05/16 15:00 Respiratory Rate 18 09/05/16 15:00 Blood Pressure 132/72 09/05/16 15:00 O2 Sat by Pulse Oximetry (%) 99 09/05/16 16:00 Constitutional: Yes: No Distress, Calm, Obese Cardiovascular: Yes: Regular Rate and Rhythm. No: Murmur Respiratory: Yes: Regular, CTA Bilaterally. No: Wheezes Gastrointestinal: Yes: Soft, Abdomen, Obese, Tenderness (minimal incisional, mainly at supraumbilical site, some referred discomfort from RUQ to umbilical site) Wound/Incision: Yes: Clean/Dry, Dressing Dry and Intact (steristrips under dressings) Neurological: Yes: Alert, Oriented Discharge Summary Reason For Visit: APPENDICITIS Current Active Problems Acute appendicitis with localized peritonitis (Acute) Asthma (Acute) Disease of digestive system complicating puerperium (Acute) Hypothyroid (Acute) Procedures: Principal: laparoscopic appendectomy Other Procedures: CT abd/pelvis, TV ultrasound Hospital Course: 26yoF presented at 3 days from [facility] with one day of R-sided abdominal pain. Workup revealed leukocytosis and acute appendicitis. She was not NPO in the ER, so was admitted and given IV fluids and antibiotics. She had laparoscopic appendectomy the next morning and had one dose of antibiotic postop. Postoperative course has been unremarkable - pt was able to void, began ambulating and tolerated clears the same day. She is now tolerating regular diet , has had flatus but no BM, and pain is controlled with po meds. She is discharged home in good condition to f/u in 1-2 weeks with noted lifting restrictions. 35 minutes spent on discharge Condition: Good - Instructions Diet, Activity, Other Instructions: [place] LENS FINISHER checked prior to escribe of narcotic pain management. This report was requested by: Blaise Venegas | Reference #: [id number] Dr. Medina's Discharge Instructions Dear BLANCO CHRISTY, Post Operative Instructions Physical activity Resume your normal everyday activity as tolerated; no heavy lifting (more than 15 pounds) or exercise until seen by your surgeon. You may walk unlimited amounts and climb stairs. You may resume driving the car when you feel safe and comfortable behind the wheel and with a seatbelt on. Wound care If you have bandages, leave them on, and keep dry until . After that time discard the outer bandage. If there are tapes on the skin under the outer bandage, leave them in place. They will peel off in the next 7 to 10 days. Do Not peel them off. You may shower once the dressings are off. If there are tapes present on the skin, they can get wet. Diet There are no dietary restrictions. Eat healthy, high-fiber foods. Drink 6 to 8 glasses of liquid (non-caffeinated) each day. This will assist in keeping your bowels regular. Stool softener is recommended (Colace or docusate sodium 100mg) twice daily while you are taking prescription pain medicine. If stools get too loose, you may reduce the dose. Pain management You may take Tylenol or acetaminophen. Any pain prescription medication ordered should be taken as prescribed for moderate to severe pain. Maximum Tylenol dose per day is [address] Medina for any of the following: Severe pain not relieved by medication Fever of 101 or higher Excessive bleeding or drainage on dressing Inability to urinate Call the office tomorrow at [phone] for a post-operative appointment in 1- 2 weeks. Referrals: Sally Luo MD [Primary Care Provider] - Disposition: HOME - Home Medications Comprehensive Discharge Medication List: Ambulatory Orders Levothyroxine [Synthroid -] 100 mcg PO DAILY@0700 tablet 07/14/15 Vitamins (Sjr) - 1 tab PO DAILY #30 tablet 07/14/15 Acetaminophen [Tylenol .Regular Strength -] 325 mg PO Q6H PRN #0 tablet Acetaminophen W/ Codeine #3 [Tylenol # 3 -] 1 - 2 tab PO Q6H PRN #30 tablet MDD 8 09/05/16 Pt instructed to get Docusate sodium (Colace) 100mg bid [id number], to use while taking narcotic."
== END 2016-09-05 17:15 | disposition home or self-care (01) | DRG 952 ==
LOC: JER 12:49 → JERBED 22:28 → J3W 09-04 13:00
PROVIDERS: ADMIT Surgery; ATTEND Surgery
PROC: 0DTJ4ZZ Resection of Appendix, Percutaneous Endoscopic Approach (ICD-10-PCS; principal; 2016-09-04 08:30)
DX: O99.63 Diseases of the digestive system complicating the puerperium (principal); K35.3 Acute appendicitis with localized peritonitis; E66.9 Obesity, unspecified; Z68.41 Body mass index [BMI] 40.0-44.9, adult; E03.9 Hypothyroidism, unspecified; Y83.9 Surgical procedure, unspecified as the cause of abnormal reaction of the patient, or of later complication, without mention of misadventure at the time of the procedure; J45.20 Mild intermittent asthma, uncomplicated
CPT/HCPCS: 36415; 74177-TC; 76830-TC; 80053; 81003; 83690; 85025; 86850; 86900; 86901; 87086; 88304-TC; 94010; 94640; 94760; 99285-25

== ENCOUNTER 2023-09-03 09:30 | Emergency (ER) | payer OTHER ==
[2023-09-03 09:36] VITALS: BP 151/82; PULSE 85; RESP 20; TEMP 98.4; BMI 47.9
[2023-09-03] MEDS ORDERED: METOCLOPRAMIDE HCL INJECTION 10 MG/2 ML VIAL ONE (10:22)
[2023-09-03] MEDS: METOCLOPRAMIDE HCL INJECTION 10 MG/2 ML VIAL IVPUSH ONE (10:38)
[2023-09-03] MEDS: SODIUM CHLORIDE 0.9% 500 ML INFUS.BAG IV ONE (10:38)
[2023-09-03] MEDS: DEXAMETHASONE SOD PHOSPHATE 4 MG/1 ML VIAL IVPUSH ONE (12:54)
[2023-09-03] MEDS ORDERED: DEXAMETHASONE SOD PHOSPHATE 4 MG/1 ML VIAL ONE (12:54)
== END 2023-09-03 13:12 | disposition home or self-care (01) ==
LOC: JER 09:30
PROC: 3E033GC Introduction of Other Therapeutic Substance into Peripheral Vein, Percutaneous Approach (ICD-10-PCS; principal; 2023-09-03)
PROC: 3E033GC Introduction of Other Therapeutic Substance into Peripheral Vein, Percutaneous Approach (ICD-10-PCS; 2023-09-03)
DX: G43.909 Migraine, unspecified, not intractable, without status migrainosus (principal); R11.0 Nausea
CPT/HCPCS: 70450-TC; 99284-25